=== PATIENT | female | born 1965 | race Caucasian/White ===

== ENCOUNTER 2016-07-22 09:05 | Emergency (ER) | payer SELFPAY ==
[~2016-07-22] VITALS: Ht 172.7 cm; Wt 149.7 kg
[2016-07-22 09:59] VITALS: BP 140/88
== END 2016-07-22 10:23 | disposition home or self-care (01) ==
LOC: ER 09:06
DX: J20.9 Acute bronchitis, unspecified (principal); G43.909 Migraine, unspecified, not intractable, without status migrainosus; R09.81 Nasal congestion; H92.02 Otalgia, left ear; J45.909 Unspecified asthma, uncomplicated

== ENCOUNTER 2016-07-31 09:21 | Emergency (ER) | payer SELFPAY ==
[~2016-07-31] VITALS: Ht 172.7 cm; Wt 159.3 kg
[2016-07-31 09:34] VITALS: BP 154/89
== END 2016-07-31 10:20 | disposition left against medical advice (07) ==
LOC: ER 09:22
DX: R05 Cough (principal); R51 Headache; Z53.21 Procedure and treatment not carried out due to patient leaving prior to being seen by health care provider

== ENCOUNTER 2016-08-26 10:59 | Emergency (ER) | payer SELFPAY ==
[~2016-08-26] VITALS: Ht 170.2 cm; Wt 149.7 kg
[2016-08-26 11:31] VITALS: BP 180/91
== END 2016-08-26 12:06 | disposition home or self-care (01) ==
LOC: ER 10:59
DX: G43.909 Migraine, unspecified, not intractable, without status migrainosus (principal); J45.909 Unspecified asthma, uncomplicated

== ENCOUNTER 2016-10-07 11:57 | Emergency (ER) | payer SELFPAY ==
[~2016-10-07] VITALS: Ht 170.2 cm; Wt 145.1 kg
[2016-10-07 14:47] VITALS: BP 142/75
== END 2016-10-07 15:18 | disposition home or self-care (01) ==
LOC: ER 11:57
DX: J20.9 Acute bronchitis, unspecified (principal); G43.909 Migraine, unspecified, not intractable, without status migrainosus; J45.909 Unspecified asthma, uncomplicated; E66.01 Morbid (severe) obesity due to excess calories; Z68.43 Body mass index [BMI] 50.0-59.9, adult

== ENCOUNTER 2017-02-12 16:38 | Emergency (ER) | payer SELFPAY ==
[~2017-02-12] VITALS: Ht 170.2 cm; Wt 158.8 kg
[2017-02-12 20:02] VITALS: BP 139/79
== END 2017-02-12 21:12 | disposition home or self-care (01) ==
LOC: ER 16:42
DX: G43.909 Migraine, unspecified, not intractable, without status migrainosus (principal); I20.9 Angina pectoris, unspecified; J45.909 Unspecified asthma, uncomplicated; Z76.0 Encounter for issue of repeat prescription

== ENCOUNTER 2017-03-16 12:51 | Emergency (ER) | payer SELFPAY ==
[~2017-03-16] VITALS: Ht 170.2 cm; Wt 147.4 kg
[2017-03-16 14:50] VITALS: BP 133/85
[2017-03-16] MEDS ORDERED: ALBUTEROL SULF 2.5 MG/0.5ML(0.5%) NEB SOLN NEB ONE (15:15)
[2017-03-16] MEDS ORDERED: IPRATROPIUM BROM 0.5 MG/2.5ML INH SOL NEB ONE (15:15)
== END 2017-03-16 16:36 | disposition home or self-care (01) ==
LOC: ER 12:55
DX: J41.0 Simple chronic bronchitis (principal); J45.909 Unspecified asthma, uncomplicated; I20.9 Angina pectoris, unspecified
CPT/HCPCS: 94640

== ENCOUNTER 2017-04-21 14:52 | Emergency (ER) | payer OTHER ==
[~2017-04-21] VITALS: Ht 170.2 cm; Wt 149.7 kg
[2017-04-21 15:51] VITALS: BP 139/83
== END 2017-04-21 16:23 | disposition home or self-care (01) ==
LOC: ER 14:52
DX: J20.9 Acute bronchitis, unspecified (principal); J45.909 Unspecified asthma, uncomplicated; G43.909 Migraine, unspecified, not intractable, without status migrainosus

== ENCOUNTER 2017-04-28 13:16 | Emergency (ER) | payer OTHER ==
[~2017-04-28] VITALS: Ht 170.2 cm; Wt 149.7 kg
[2017-04-28 14:28] VITALS: BP 126/68
== END 2017-04-28 14:51 | disposition home or self-care (01) ==
LOC: ER 13:16
DX: J20.9 Acute bronchitis, unspecified (principal); J45.909 Unspecified asthma, uncomplicated